=== PATIENT | female | born 1995 | race Caucasian/White ===

== ENCOUNTER → 2018-12-12 | Emergency (ER) | payer SELFPAY ==
[~2018-12-12] VITALS: Ht 162.6 cm; Wt 54.5 kg
[~2018-12-12] MED LIST: NORCO 325 MG-51 TAB PO
[2018-12-12 14:09] VITALS: TEMP 99.1
[2018-12-12 14:56] LABS: BASO % 0.1 % (0.0-2.0); EOS % 0.5 % (0-4.0); GRAN # 5.7 (1.4-6.5); GRAN % 75.8 % (42.2-75.2); HEMATOCRIT 38.6 % (37.0-47.0); HEMOGLOBIN 12.5 g/dl (12.5-16.0); LYMPH # 1.2 (1.2-3.4); LYMPH % 15.3 % (20.0-51.0); MEAN CELL VOLUME 88 fl (80.0-100.0); MEAN CORPUSCULAR HEMOGLOBIN 28 pg (27.0-31.0); MEAN CORPUSCULAR HGB CONC 32 g/dl (33.0-37.0); MEAN PLATELET VOLUME 11.2 fl (7.4-10.4); MONO # 0.6 (0.1-0.6); MONO % 8.2 % (1.7-9.3); PLATELET COUNT 164 K/mm3 (130-400); REDCELL DISTRIBUTION WIDTH-CV 13.8 % (11.5-14.5)
[2018-12-12 15:11] LABS: ALBUMIN 4.4 gm/dL (3.5-5.0); BILIRUBIN,TOTAL 0.3 mg/dL (0.0-1.0); C-REACTIVE PROTEIN 8.4 mg/dL (0.0-0.9); CALCIUM 9.5 mg/dL (8.4-10.2); CREATININE, serum 0.64 (0.52-1.25); POTASSIUM 3.5 mmol/L (3.4-5.0)
[2018-12-12 15:59] LABS: COLLECTION METHOD CLEAN CATCH
[2018-12-12 16:04] LABS: MUCOUS Present /lpf; PH 6 (5-8); URINE APPEARANCE Hazy; URINE BACTERIA Rare /hpf; URINE BILIRUBIN Negative (NEGATIVE); URINE BLOOD Negative (NEGATIVE); URINE COLOR Yellow; URINE GLUCOSE Negative (NEGATIVE); URINE KETONE Trace (NEGATIVE); URINE LEUKOCYTE ESTERASE Negative (NEGATIVE); URINE NITRATE Negative (NEGATIVE); URINE PROTEIN(semi-quant) Negative (NEGATIVE); URINE RBC 0-2 /hpf
[2018-12-12 17:29] VITALS: BP 132/88; PULSE 81
== END ==
LOC: COL.ER 14:05
PROVIDERS: Family Medicine
DX: R10.2 Pelvic and perineal pain (principal)
CPT/HCPCS: J0696; J1885; J7030; Q9967

== ENCOUNTER 2019-03-19 05:20 | Emergency (ER) | payer SELFPAY ==
[~2019-03-19] VITALS: Ht 162.6 cm; Wt 59.1 kg
[2019-03-19 05:50] LABS: BASO % 0.3 % (0.0-2.0); EOS # 0.1 (0.0-0.7); EOS % 0.9 % (0-4.0); GRAN # 4.7 (1.4-6.5); GRAN % 59.7 % (42.2-75.2); HEMOGLOBIN 11.1 g/dl (12.5-16.0); LYMPH # 2.4 (1.2-3.4); LYMPH % 30.1 % (20.0-51.0); MEAN CELL VOLUME 88 fl (80.0-100.0); MEAN CORPUSCULAR HEMOGLOBIN 28 pg (27.0-31.0); MEAN CORPUSCULAR HGB CONC 32 g/dl (33.0-37.0); MEAN PLATELET VOLUME 10.9 fl (7.4-10.4); MONO # 0.7 (0.1-0.6); MONO % 8.7 % (1.7-9.3); PLATELET COUNT 191 K/mm3 (130-400); RED BLOOD COUNT 3.96 M/mm3 (4.10-5.30); REDCELL DISTRIBUTION WIDTH-CV 13.4 % (11.5-14.5)
[2019-03-19 06:38] LABS: COLLECTION METHOD CLEAN CATCH
[2019-03-19 06:43] LABS: MUCOUS Present /lpf; PH 7 (5-8); SQUAMOUS EPITHELIAL 0-2 /hpf; URINE APPEARANCE Clear; URINE BACTERIA None Seen /hpf; URINE BILIRUBIN Negative (NEGATIVE); URINE BLOOD Negative (NEGATIVE); URINE COLOR Yellow; URINE GLUCOSE Negative (NEGATIVE); URINE KETONE Negative (NEGATIVE); URINE LEUKOCYTE ESTERASE Negative (NEGATIVE); URINE NITRATE Negative (NEGATIVE); URINE PROTEIN(semi-quant) Negative (NEGATIVE); URINE RBC None Seen /hpf; URINE UROBILINOGEN Negative (NEGATIVE)
[2019-03-19 11:05] VITALS: BP 109/69; PULSE 76; TEMP 98.9
== END 2019-03-19 11:11 | disposition home or self-care (01) ==
LOC: COL.ER 05:20
PROVIDERS: Emergency Medicine
DX: O20.0 Threatened abortion (principal); Z3A.12 12 weeks gestation of pregnancy; Z86.19 Personal history of other infectious and parasitic diseases
CPT/HCPCS: J2550; J2791; J3010

== ENCOUNTER 2019-07-22 20:56 | Outpatient (CLI) | payer MEDICAID ==
[~2019-07-22] VITALS: Ht 162.6 cm; Wt 62.7 kg
[~2019-07-22 20:56] MED LIST changes: +LEXAPRO 10MG10 MG PO; +ZOFRAN ODT4 MG PO
[2019-07-22 21:06] VITALS: BP 108/66; PULSE 99; TEMP 98.1
--- NOTE | 2019-07-22 21:06 | NUR ---
2105- PATIENT ARRIVED TO L&D AT THIS TIME AND PLACED IN TO LABOR ROOM #4, PATIENT BEING SEEN AT 29 WEEKS GESTATION WITH C/O ABDOMINAL CRAMPING, BROWN VAGINAL DISCHARGE AND VAGINAL BLEEDING PREVIOUSLY SEEN YESTERDAY EVENING. 2111- EFM PLACED ON PATIENT. 2115- VSS 2119- SVE FT/50/-2 WITH BROWN DISCHARGE. 2126- PROVIDER CALLED AT THIS TIME. SEE PHYSICIAN NOTIFICATION DOCUMENTATION.
[2019-07-22 21:30] VITALS: BP 108/66; PULSE 99; TEMP 98.1
[2019-07-22] MEDS ORDERED: PRENATAL TABLET PO (21:59)
== END 2019-07-22 22:15 | disposition home health service (06) ==
LOC: LDRO 20:56
DX: O46.93 Antepartum hemorrhage, unspecified, third trimester (principal); Z3A.29 29 weeks gestation of pregnancy

== ENCOUNTER 2019-09-13 11:10 | Outpatient (CLI) | payer MEDICAID ==
[~2019-09-13] VITALS: Ht 162.6 cm; Wt 65.0 kg
[~2019-09-13 11:10] MED LIST changes: +PRENATAL TABLET PO
--- NOTE | 2019-09-13 11:15 | NUR ---
Patient arrives ambulatory with FOB with complaints of "period cramps all night". Patient states she started having mild contractions after SVE in office yesterday, then more contractions after having intercourse last night. Patient states she had a single gush of fluid following intercourse. No vaginal bleeding and normal movement today. Patient does not appear uncomfortable upon arrival. Changes into gown, EFM explained and placed. VS obtained. 1125- Amniotrace negative. SVE unchanged from office, no fluid noted on exam. Patient repositioend WL and assessment completed. See physician notification. Patient does not desire SVE recheck in one hour. 1150- Patient taken off EFM per order following category 1 reactive FHR strip. Patient does not desire SVE recheck and wishes to go home. One contraction noted during monitoring, patient talking through it.
[2019-09-13 11:30] VITALS: BP 110/70; PULSE 123; TEMP 98.4
[2019-09-13] MEDS ORDERED: PROFE180 MG (11:30)
[2019-09-13 11:46] LABS: TRICYCLIC ANTIDEPRESS URINE NEGATIVE
[2019-09-13 11:52] VITALS: BP 110/70; PULSE 123; TEMP 98.2
--- NOTE | 2019-09-13 12:00 | NUR ---
Patient given discharge instructions. Labor precuations and kick counts reviewed. Patient denies questions and leaves ambulatory with FOB.
== END 2019-09-13 12:00 | disposition home or self-care (01) ==
LOC: LDRO 11:10
PROVIDERS: Obstetrics & Gynecology
DX: O26.893 Other specified pregnancy related conditions, third trimester (principal); Z3A.36 36 weeks gestation of pregnancy

== ENCOUNTER 2019-09-26 02:14 | Inpatient (IN) | payer MEDICAID ==
[2019-09-26] VITALS (15 sets, daily range): BP systolic 101–122; BP diastolic 53–74; PULSE 76–104; TEMP 98–98.5
[~2019-09-26] VITALS: Ht 162.6 cm; Wt 67.7 kg
[~2019-09-26 02:14] MED LIST changes: +PROFE180 MG
--- NOTE | 2019-09-26 02:20 | NUR ---
G3L1 at 38 weeks and 3 days arrives to unit with complaint of contractions that woke her up around 0200 and have been strong and frequent. Pt denies LOF or vaginal bleeding. Pt denies headaches, blurry vision, or RUQ pain. Pt oriented to room, call light within reach, bed in low and locked position. US and toco explained and applied. Plan of care reviewed with patient. Admission assessment started. Vital signs obtained. SVE /-2
--- NOTE | 2019-09-26 02:35 | NUR ---
Pt found to have gotten herself out of bed and was in bathroom saying she needed to have a bowel movement. Pt told to get back in bed for SVE and to be on monitors. Pt requesting epidural as soon as she can get it. SVE , membranes intact Mariya Arias CRNA notified to come to hospital for epidural placement.
--- NOTE | 2019-09-26 02:50 | NUR ---
0250 - Pt states that she feels like she needs to push. SVE . Encouraged patient to continue breathing through contractions. Dr. Ruano notified, see physician notification. 0300 - MAGO Marroquin at bedside. Epidural risks, benefits, and procedure explained to patient, pt verbalized understanding. Pt repositioned to sitting on edge of bed. 0307 - Single shot by MAGO Marroquin. Pt denies any adverse reactions 0310 - Test dose by MAGO Marroquin. Pt denies adverse reactions. 0315 - Pt repositioned to semi fowlers. Safety precautions reviewed. Call light within reach. SVE
[2019-09-26 02:52] LABS: BASO % 0.3 % (0.0-2.0); EOS % 0.4 % (0-4.0); GRAN % 61.5 % (42.2-75.2); LYMPH # 3.3 (1.2-3.4); LYMPH % 29.3 % (20.0-51.0); MEAN CELL VOLUME 77 fl (80.0-100.0); MEAN CORPUSCULAR HGB CONC 31 g/dl (33.0-37.0); MEAN PLATELET VOLUME 11.6 fl (7.4-10.4); MONO # 0.9 (0.1-0.6); MONO % 7.6 % (1.7-9.3); PLATELET COUNT 229 K/mm3 (130-400); RED BLOOD COUNT 3.96 M/mm3 (4.10-5.30); REDCELL DISTRIBUTION WIDTH-CV 17.5 % (11.5-14.5)
[2019-09-26 02:54] LABS: HEMATOCRIT 30.3 % (37.0-47.0); HEMOGLOBIN 9.3 g/dl (12.5-16.0); MEAN CORPUSCULAR HEMOGLOBIN 23 pg (27.0-31.0)
--- NOTE | 2019-09-26 03:20 | NUR ---
Dr. Ruano at bedside discussing history and plan of care. Spontaneous rupture of membranes performed. Small amount of blood tinged fluid returned. SVE /+1.
--- NOTE | 2019-09-26 03:47 | NUR ---
0340 - Dr. Ruano at bedside for SVE exam. SVE 10/100/+3. Room set up for delivery. Nursery called to bedside. 0342 - Pt educated on pushing techniques. Positioned into footplates. Dr. Ruano gowned and gloved at perineum. Initial push at this time. 0345 - FHR down to 60 bpm. Large crown with pushes, delivery imminent. 0347 - Spontaneous vaginal delivery of viable boy. Infant bulb suctioned and stimulated by Dr. Ruano. Infant then placed on mothers abdomen, care of infant assumed to Nursery RN, Shasha Mabry. Cord clamped x 2 and cut by friend of patient. 0354 - Spontaneous delivery of intact placenta. Fundal massage by Dr. Ruano. Pitocin started at 333 mL/hr per protocol. Perineum intact per Dr. Ruano. Straight cath performed to obtain UA sample for UDS. 0400 - Pt repositioned in bed for comfort. Fundus firm and down 2 from umbilicus. Scant bleeding noted. recovery started. See physician delivery note.
[2019-09-26 04:44] LABS: TRICYCLIC ANTIDEPRESS URINE NEGATIVE
--- NOTE | 2019-09-26 09:31 | NUR ---
Initial visit attempt; Patient indisposed, Identity Management Developer left card of congratulations for the of her son and information regarding the availability of spiritual care at [facility].
--- NOTE | 2019-09-26 09:44 | NUR ---
food services director at bedside.
--- NOTE | 2019-09-26 13:15 | NUR ---
director of food and nutrition services met with patient for needs assessment. Patient's urine drug test was positive for marijuana. Infant's urine drug screen was negative and cord blood was sent. Patient states she lives with her boyfriend and he is the father of the baby. Patient openly admits to marijuana and that she is glad her baby is not ill because of it. This is 2nd child for patient as she has an 18mo old daughter at home. Patient states she has been in contact with Be[facility] at [facility] and plans to give this baby to her best friend "Nighat" some time after she leaves the hospital. Patient states she has suffered depression and that her mother had depression. Patient has historically seen [facility] and been on medication, however, has stopped both of these. Patient states she is aware of how to access services to get help and that her boyfriend is also committed to helping patient. Worker advised that DCF report would be filed and patient stated she accepts what has to be done due to illegal marijuana use during . Worker filed [facility] report #[id number] and faxed positive drug results. Worker collaborated with patient's nurse.
[2019-09-27 05:10] VITALS: BP 102/60; PULSE 77; TEMP 97.8
[2019-09-27 07:35] VITALS: BP 110/77; PULSE 91; TEMP 98.1
[2019-09-27] MEDS ORDERED: PERCOCET 325 MG1 TA2 PO (09:12)
[2019-09-27] MEDS ORDERED: IBU600 MG PO (09:12)
[2019-09-27 16:10] VITALS: BP 112/77; PULSE 88; TEMP 97.8
[2019-09-27 20:30] VITALS: BP 113/82; PULSE 85; TEMP 98.3
[2019-09-28 07:59] VITALS: BP 109/68; PULSE 78; TEMP 98
--- NOTE | 2019-09-29 14:36 | NUR ---
reforestation worker filed [facility] report #[id number] as infant's cord blood was positive for cannabinoids in system.
== END 2019-09-28 15:15 | disposition home or self-care (01) | DRG 806 ==
LOC: LDRO 02:14 → OB 02:33 → LDR 02:33 → OB 07:16
PROVIDERS: ADMIT Obstetrics & Gynecology
PROC: 10E0XZZ Delivery of Products of Conception, External Approach (ICD-10-PCS; principal; 2019-09-27)
PROC: 10907ZC Drainage of Amniotic Fluid, Therapeutic from Products of Conception, Via Natural or Artificial Opening (ICD-10-PCS; 2019-09-27)
DX: O99.02 Anemia complicating childbirth (principal); O99.324 Drug use complicating childbirth; Z37.0 Single live birth; F12.10 Cannabis abuse, uncomplicated; Z3A.38 38 weeks gestation of pregnancy
CPT/HCPCS: J2590; J2795; J7120